=== PATIENT | male | born 1955 | race Caucasian/White ===

== ENCOUNTER 2024-08-07 15:42 | Emergency (ER) | payer MEDICARE, BC, SELFPAY ==
[2024-08-07 15:48] VITALS: BP 134/83
[2024-08-07 16:05] LABS: % Basophils 1.1 % (0-2); % Eosinophils 4.1 % (0-6); % Immature Granulocytes 0.1 % (0-0.5); % Lymphocytes 33.5 % (20.5-51.1); % Monocytes 9.4 % (1.7-9.3); % Neutrophils 51.8 % (42.2-75.2); Absolute Basophils 0.1 10^3/uL (0-0.2); Absolute Eosinophils 0.3 10^3/uL (0-0.7); Absolute Lymphocytes 2.4 10^3/uL (1.2-3.4); Absolute Monocytes 0.7 10^3/uL (0.1-0.6); Absolute Neutrophils 3.8 10^3/uL (1.4-6.5); Hematocrit 43.3 % (39.0-52.0); Hemoglobin 14.9 g/dL (13.0-18.0); Mean Corp Hgb Conc. 34.4 g/dL (33.0-37.0); Mean Corpuscular Hgb 29.7 pg (27.0-31.0); Mean Corpuscular Volume 86.3 fL (80.0-94.0); Mean Platelet Volume 10.6 fL (7.4-10.4); Nucleated Red Blood Cells % 0 % (-); Platelet Count 233 10^3/uL (130-400); Red Blood Cell Count 5.02 10^6/uL (4.70-6.10); Red Cell Dist. Width 14.3 % (11.5-14.5); White Blood Cell Count 7.3 10^3/uL (4.8-10.8)
[2024-08-07 16:24] LABS: ALT (SGPT) 29 U/L (0-50); AST (SGOT) 30 U/L (17-59); Albumin 4.7 g/dl (3.5-5.0); Alkaline Phosphatase 72 U/L (38-126); Blood Urea Nitrogen 22 mg/dl (9-20); Calcium 9.4 mg/dl (8.4-10.2); Carbon Dioxide 22 mmol/L (22-30); Chloride 107 mmol/L (98-107); Glucose 150 mg/dl (70-99); Potassium 4.5 mmol/L (3.5-5.1); Sodium 141 mmol/L (135-145); Total Bilirubin 0.8 mg/dl (0.2-1.3); Total Protein 7.6 g/dl (6.3-8.2); eGFR > 60.00
[2024-08-07 17:51] VITALS: BP 127/91
--- NOTE | 2024-08-07 18:46 | ED.GENMED ---
History of Present Illness
General
Chief Complaint: Skin Problem
Source: patient
Exam Limitations: none
Time Seen by Provider: 08/07/24 18:05
Nursing documentation reviewed up to this point in time: agreed with
History of Present Illness
History of Present Illness:
Pt presents to ED secondary to nonhealing LLE wound, which occurred 5 days ago, when he accidentally dropped heavy box containing [employer] ornaments. Pt was evaluated at urgent care center yesterday and started on clindamycin. After re-evaluation
today, there was concern that wound appeared to be worsening. Denies fever/chills. Denies nausea/vomiting. Pt does have history of diabetes. Denies previous history of skin infection.
Review of Systems
Review of Systems
Allergies reviewed?: Yes
All Other Systems: ROS reviewed and negative except as documented in HPI and ROS
Constitutional: Reports no symptoms
EENT: Reports no symptoms
Respiratory: Reports no symptoms
Cardiac: Reports no symptoms
ABD/GI: Reports no symptoms
Musculoskeletal: Reports no symptoms
Skin: Reports other (leg wound)
Neurological: Reports no symptoms
Phy Exam
Physical Exam
Physical Exam:
Physical Exam
General: no apparent distress, not acutely ill. afebrile
Head: nc/at. eomi
Neck: supple. normal range of motion
Neuro: alert and oriented x 3. no focal neurological deficits
Skin: an approx 1cm ulcer noted over mid LLE with minimal erythema/swelling, with mild tenderness.
Psychiatric: well kept. interactive and cooperative
Extremities: no edema. no calf tenderness.
Course
Orders/Labs/Results
Orders:
Orders
08/07/24 15:58
CMP [Comprehensive Metabolic Panel] Urgent
Complete Blood Count/With Diff Urgent
Abnormal Lab Results
08/07/24
15:58
MPV 10.6 H fL
(7.4-10.4)
Absolute Monos (auto) 0.7 H 10^3/uL
(0.1-0.6)
Monocytes % 9.4 H %
(1.7-9.3)
BUN 22 H mg/dl
(9-20)
Glucose 150 H mg/dl
(70-99)
08/07/24 15:58
08/07/24 15:58
Vital Signs
Initial and Last Documented VS:
Initial Vital Signs
Temp Pulse Resp BP Pulse Ox
98.1 F 53 16 134/83 98
08/07/24 15:48 08/07/24 15:48 08/07/24 15:48 08/07/24 15:48 08/07/24 15:48
Last Documented Vital Signs
Temp Pulse Resp BP Pulse Ox
98.1 F 54 16 154/98 98
08/07/24 15:48 08/07/24 19:40 08/07/24 19:40 08/07/24 19:40 08/07/24 19:40
MDM/Problems Addressed
MDM/Problems Addressed:
History and exam consistent with likely nonhealing wound, with likely development of early cellulitis. Fortunately, patient is afebrile and hemodynamically stable, and nontoxic-appearing. Wound appears to be very well localized, with expected
associated with gravity dependent edema. There is no evidence of systemic infection nor any clinical evidence of proximal propagation of infection. As such, decision made to discharge patient home with recommendation to continue clindamycin, as
started yesterday, as well as close follow-up with his PCP for reevaluation. Advised to return to ED with worsening symptoms, i.e. fever/worsening redness or swelling
*Critical Care Note
Total Time (30-74mins, 75-104mins- exclusive of procedures): Not Applicable
ED Attending Note
-
Portions of this chart may have been created with voice recognition software.� Occasional wrong word or��sound alike� substitutions may have occurred due to the inherent limitations of voice recognition software.
Discharge Plan
Departure
Patient Disposition: Home (Routine Discharge)
Date of Disposition: 08/07/24
Time of Disposition: 19:31
Patient with high blood pressure during this ER visit?: Yes
Condition: Good
Discharge Problem:
Leg wound, left
Instructions: Wound Care (DC), Cellulitis (Skin Infection), Adult (DC)
Referrals:
UNKNOWN - PT DOES,NOT KNOW [Family Provider] -
Activity Restrictions/Additional Instructions:
As discussed, please follow-up with your primary care physician and/or other healthcare professional for reevaluation in 2 to 3 days. Please consider return to ED with worsening symptoms, i.e. fever/nausea/rapidly progressing redness or swelling.
Interventions
Interventions:
*Risk Screen - Suicide Last Done: 08/07/24 15:48
*General Assessment Last Done: 08/07/24 15:48
*Neglect/Abuse Screening Last Done: 08/07/24 19:03
ED- Fall Risk Assessment Last Done: 08/07/24 19:03
*ED COVID-19 Vaccine History Last Done: 08/07/24 15:48
*Nursing Disposition Last Done: 08/07/24 19:40
ED-Skin Assessment Last Done: 08/07/24 19:40
Discharge Date and Time
Discharge Date/Time: 08/07/24 19:40
Print Language: [email or web address]
[2024-08-07 19:40] VITALS: BP 154/98
== END 2024-08-07 19:40 | disposition home or self-care (01) ==
LOC: EMR 15:42
PROVIDERS: EMERGENCY PHYSICIAN Emergency Medicine
DX: S81.802A Unspecified open wound, left lower leg, initial encounter (principal); W20.8XXA Other cause of strike by thrown, projected or falling object, initial encounter; E11.9 Type 2 diabetes mellitus without complications; I10 Essential (primary) hypertension; E78.5 Hyperlipidemia, unspecified; G47.33 Obstructive sleep apnea (adult) (pediatric); Z79.84 Long term (current) use of oral hypoglycemic drugs
CPT/HCPCS: 99283; 80053; 85025